=== PATIENT | female | born 1985 | race Caucasian/White ===

== ENCOUNTER → 2019-09-20 13:44 | Outpatient (CLI) | payer MEDICAID | END | disposition home or self-care (01) | LOC: D.HCCECHO 13:44 | PROVIDERS: ATTEND Internal Medicine Cardiovascular Disease | DX: R00.2 Palpitations (principal) ==

== ENCOUNTER 2019-10-27 10:37 | Day surgery (SDC) | payer MEDICAID ==
[~2019-10-27] VITALS: Ht 160 cm; Wt 65.4 kg
--- NOTE | ~2019-10-27 | HEMODYNAMI ---
PATIENT:BOBBY RIBERA MEDICAL RECORD: [id number] : 85 LOCATION:D[facility]REYA ADMISSION DATE: 10/27/19 Generatedon:10/27/201914:44 Patient name: BOBBY RIBERA Patient #: [id number] SSN: [id number] : 1985 Date of study: 10/27/2019 Page: Of Hemodynamic Procedure Report Patient Data Patient Demographics Procedure consent was obtained First Name: BOBBY Gender: Female Last Name: BACILIO : 1985 [facility] Initial: JOHN Age: 34 year(s) Patient #: [id number] Race: SSN: [id number] Additional ID: [id number] Contact details [address]: [address] [place] [address] State: [place] City: [place] Zip code: [address] Past Medical History Allergies Allergen Reaction Date Comments Reported Other allergy 10/27/2019 NKDA Admission Admission Data Admission Date: 10/27/2019 Admission Time: 10:37 Lab Results Lab Result Date: 10/27/2019 Lab Result Time: 0:00 Biochemistry Name Units Result Min Max BUN mg/dl 8 --(*---)-- 7 18 Creatinine mg/dl 0.8 --(-*--)-- 0.6 1.3 eGFR ml/min 87 -*(----)-- 90 120 NONAFRICAN CBC Name Units Result Min Max Hematocrit % 39.4 -*(----)-- 42 54 Hemoglobin g/dl 14 --(*---)-- 13.5 17.5 Procedure Procedure Types Cath Procedure Diagnostic Procedure PPM/ICD PPM Dual Implant Sedation Charges Moderate Sedation up to 30 minutes Procedure Description Procedure Date Procedure Date: 10/27/2019 Procedure Start Time: 14:09 Procedure End Time: 14:42 Procedure Staff Name Function Rolo Hoover MD Performing Physician Monica Mcgraw RT Monitor Jenny Berger RT Scrub Jay Crews MD Assisting physician Joanne Blake RT Manager Housekeeping Rebecca Smith RN Nurse Isis Arenas RN Nurse Procedure Data Cath Procedure Fluoroscopy Diagnostic fluoroscopy Total fluoroscopy Time: 3.2 time: 3.2 min min Diagnostic fluoroscopy Total fluoroscopy dose: dose: 28.52 mGy 28.52 mGy Contrast Material Contrast Material Type Amount (ml) Isovue 300 0 Estimated blood loss: 10 ml Procedure Complications No complications Procedure Medications Medication Administration Route Dosage Ancef (1Gm/50ml NS) I.V.P.B 1 g 0.9% NaCl I.V. 100 ml/hr Ancef Irrigation Topical 1 g (1gm/500ml NS) Lidocaine 1% added to field 20 Versed I.V. 2 mg Fentanyl I.V. 50 mcg Versed I.V. 2 mg Fentanyl I.V. 50 mcg Ativan 2 mg Fentanyl I.V. 50 mcg Fentanyl I.V. 50 mcg Hemodynamics Rest Heart Rate: 103 (bpm) Snapshots Pre Cath Intra NCS Post Cath Vital Signs Time Heart Resp SPO2 etCO2 NIBP (mmHg) Rhythm Pain Sedation Rate (ipm) (%) (mmHg) Status Level (bpm) 13:22:26 92 11 100 0 140/85(117) NSR 0 (11) 10(A) , No pain 13:26:34 84 15 100 0 147/87(119) NSR 0 (11) 10(A) , No pain 13:30:46 98 12 100 0 154/90(113) NSR 0 (11) 10(A) , No pain 13:34:56 96 17 96 0 132/94(108) NSR 0 (11) 10(A) , No pain 13:39:02 99 16 100 0 143/83(107) NSR 0 (11) 10(A) , No pain 13:43:08 96 13 97 0 141/95(107) NSR 0 (11) 10(A) , No pain 13:47:17 90 11 96 0 148/88(109) NSR 0 (11) 10(A) , No pain 13:51:29 79 14 93 0 136/83(107) NSR 0 (11) 10(A) , No pain 13:55:37 81 11 96 0 148/82(107) NSR 0 (11) 10(A) , No pain 13:59:49 86 13 96 0 131/84(104) NSR 0 (11) 10(A) , No pain 14:03:53 96 20 96 0 134/90(109) NSR 0 (11) 10(A) , No pain 14:08:02 86 15 98 2.2 130/77(96) NSR 0 (11) 10(A) , No pain 14:12:08 92 13 97 14.2 135/85(109) NSR 0 (11) 10(A) , No pain 14:16:18 86 12 98 9 130/75(114) NSR 0 (11) 10(A) , No pain 14:21:09 84 13 98 11.2 144/91(107) NSR 0 (11) 10(A) , No pain 14:25:19 84 16 99 18 138/84(102) NSR 0 (11) 10(A) , No pain 14:29:29 98 12 97 10.5 136/82(104) NSR 0 (11) 10(A) , No pain 14:33:37 93 13 96 9.7 136/83(108) NSR 0 (11) 10(A) , No pain 14:37:42 96 11 95 0.7 142/92(118) NSR 0 (11) 10(A) , No pain 14:41:50 98 22 98 0.7 146/119(130) NSR 0 (11) 10(A) , No pain Medications Time Medication Route Dose Verified Delivered Reason Notes Effecti veness by by 13:26:07 Ancef I.V.P.B 1 g Rolo Rebecca Per (1Gm/50ml [facility] protocol NS) MD WEBSTER 13:26:23 0.9% NaCl I.V. 100 Rolo Rebecca used for ml/hr Sneha Luis procedure MD WEBSTER 13:27:09 Ancef Topical 1 g Rolo Rebecca used for Irrigation [facility] procedure (1gm/500ml MD WEBSTER NS) 13:30:32 Lidocaine added 20ml Jay Fernandez for local 1% to vial Gladis Smith anesthetic field RN 14:05:17 Fentanyl I.V. 50 Rolo Haya for mcg [facility] sedation MD WEBSTER 14:05:17 Versed I.V. 2 mg Rolo Marinelli for [facility] sedation MD WEBSTER 14:10:42 Versed I.V. 2 mg Rolo Marinelli for [facility] sedation MD WEBSTER 14:10:49 Fentanyl I.V. 50 Rolo Marinelli for [facility] Bryan webster MD, RN 14:15:38 Ativan IVP 2 mg Rolo Marinelli for [facility] webster MD, RN 14:15:50 Fentanyl I.V. 50 Rolo Marinelli for [facility] Bryan webster MD, RN 14:22:56 Fentanyl I.V. 50 Rolo Marinelli for [facility] Bryan webster MD, RN Procedure Log Time Note 12:20:29 Informed consent obtained and on chart 12:25:58 Procedure Status PPM/ Gen Change/ Lead Revision/ Temp. 12:27:02 Time tracking: Regular hours (M-F 7:00 - 5:00) 12:33:46 Lab Result : Hemoglobin 14 g/dl 12:33:46 Lab Result : Hematocrit 39.4 % 12:33:46 Lab Result : eGFR NONAFRICAN 87 ml/min 12:33:46 Lab Result : BUN 8 mg/dl 12:33:46 Lab Result : Creatinine 0.8 mg/dl 13:01:23 Joanne Blake RT(R) sent for patient. Start room use. 13:01:29 Plan of Care:Hemodynamics will remain stable., Cardiac rhythm will remain stable., Comfort level will be maintained., Respiratory function will remain adequate., Patient/ family verbilizes understanding of procedure., Procedure tolerated without complication., Recovers from procedure without complications.. 13:06:19 Patient allergic to Other allergyNKDA 13:06:32 Lab results completed and on chart. 13:12:05 Patient received from Pre/Post Procedure Room to CCL 3 Alert and oriented. Tansferred to table in Supine position. 13:12:08 Warm blankets applied, and moises hugger turned on for patient comfort. 13:12:09 Correct patient and procedure confirmed by team. 13:12:12 ECG and BP/O2 sat monitors applied to patient. 13:12:38 H&P Date Dictated: 10/27/2019 H&P Addendum completed by physician on day of procedure. (MUST COMPLETE FOR ALL OUTPATIENTS), New H&P dictated by physician.. 13:12:40 Pre-procedure instructions explained to patient. 13:12:41 Pre-op teaching completed and patient verbalized understanding. 13:12:44 Family in patients room. 13:12:46 Patient NPO since Midnight. 13:12:52 Was the patient premedicated? Yes 13:13:12 Is patient on blood thinner?No 13:13:16 Patient diabetic? No. 13:13:25 HCG/Urine : completed and on chart, negative 13:13:28 ----Pre-sedation anethsthesia assessment.---- 13:13:33 Previous problem with sedation/anesthesia? No ? 13:13:36 Snore? Yes 13:13:38 Sleep apnea? No 13:13:40 Deviated septum? Unknown 13:13:43 Opens mouth fully? Yes 13:13:45 Sticks out tongue? Yes 13:13:49 Airway obstruction? No ? 13:13:52 Dentures? No ? 13:21:20 Vital chart was started 13:25:31 IV patent on arrival in left forearm with 0.9% NaCl at [facility]. 13:25:36 Left chest area was prepped with chlora-prep and draped in sterile fashion 13:25:37 Alarms reviewed by R. N. 13:25:38 Sharps counted by scrub and verified by R.N. 13:26:07 Ancef (1Gm/50ml NS) 1 g I.V.P.B was administered by Rebecca Smith RN ; Per protocol; Verbal order read back and verified. 13:26:23 0.9% NaCl 100 ml/hr I.V. was administered by Rebecca Smith RN; used for procedure; Verbal order read back and verified. 13:27:09 Ancef Irrigation (1gm/500ml NS) 1 g Topical was administered by Rebecca Smith RN; used for procedure; Verbal order read back and verified. 13:30:32 Lidocaine 1% 20ml vial added to field was administered by Rebecca Smith RN; for local anesthetic; Verbal order read back and verified. 13:31:54 Medtronic graphic art sales representative MASSIEL LOCO present for procedure. 13:32:06 Use device set GLADIS PPM 13:32:11 2-0 Ticron Multipack ([id number]) opened to sterile field. 13:32:12 3-0 Vicryl Single Pack [id number] opened to sterile field. 13:32:12 5-0 Monocryl PS2 [id number] opened to sterile field. 13:32:13 Cautery Tip Cloth Hauler opened to sterile field. 13:32:14 Cautery Pushbutton Pencil opened to sterile field. 13:32:15 Mepilex Dressing ([id number]) opened to sterile field. 13:33:46 Medtronic 4574-45 PPM Lead opened to sterile field. 13:33:47 Medtronic 4074-52 PPM Lead opened to sterile field. 13:34:[address] Generator [id number] opened to sterile field. 13:36:31 Pre sharps counted by scrub and verified by RN: Sutures: 7; Sponges: 5; Stick needles: 2; Skin needles: 2; Blade: 1; Cautery: 1 13:37:25 Grounding pad site Left thigh. 13:37:27 Grounding pad site free from injury. 13:37:39 Baseline sample Acquired. 13:37:54 Rhythm: 2nd degree heart block 13:37:56 Full Disclosure recording started 13:37:57 - 13:38:49 Physician paged 13:38:50 Physician responded to page. 13:42:49 Immobilizer Sling Medium opened to sterile field. 14:05:17 Versed 2 mg I.V. was administered by Isis Arenas RN; for sedation; Verbal order read back and verified. 14:05:17 Fentanyl 50 mcg I.V. was administered by Isis Arenas RN; for sedation ; Verbal order read back and verified. 14:05:40 Physician arrived 14:05:41 --------ALL STOP TIME OUT------ 14:05:42 Final Timeout: patient, procedure, and site verified with staff and physician. All members of the team are in agreement. 14:05:47 Left chest site verified by team. 14:05:59 Fire Safety Assessment: A--An alcohol-based skin anteseptic being used preoperatively., B--The operative or invasive procedure is being performed above the xiphoid process or in the oropharynx., C--Open oxygen or nitrous oxide is being used., E--There are other possible contributors. 14:06:13 Physical assessment completed. ASA score P 2 - A patient with mild systemic disease as per Rolo Hoover MD. 14:06:21 Sedation plan: IV Moderate Sedation Medication:Versed, Fentanyl 14:09:16 Procedure started. 14:09:48 Lidocaine 1% was administered to left subclavicular area by Jay Crews MD . 14:10:42 Versed 2 mg I.V. was administered by Isis Arenas RN; for sedation; Verbal order read back and verified. 14:10:49 Fentanyl 50 mcg I.V. was administered by Isis Arenas RN; for sedation ; Verbal order read back and verified. 14:12:07 Incision made to left subclavicular area. 14:12:09 Generator pocket made/opened. 14:15:38 Ativan 2 mg IVP was administered by Isis Arenas RN; for sedation; Verbal order read back and verified. 14:15:50 Fentanyl 50 mcg I.V. was administered by Isis Arenas RN; for sedation ; Verbal order read back and verified. 14:17:02 Left subclavian vein accessed with 7Fr Peel Away Sheath. 14:17:12 Left subclavian vein accessed with 7Fr Peel Away Sheath. 14:17:49 Ventricular lead inserted and advanced. 14:17:53 Atrial lead inserted and advanced. 14:20:13 Ventricular lead positioned. 14:22:49 Ventricular lead tested. 14:22:56 Fentanyl 50 mcg I.V. was administered by Isis Arenas RN; for sedation ; Verbal order read back and verified. 14:24:21 Atrial lead positioned. 14:24:34 Atrial lead tested. 14:27:49 PPM Dual was attached to lead(s) and inserted into pocket. 14:29:21 Atrial lead attachment was completed with 2-0 ticron. 14:29:28 Ventricular lead attachment was completed with 2-0 ticron. 14:29:44 Device pocket was irrigated with Ancef. 14:31:23 Subcutaneous closure was completed with 3-0 vicryl plus. 14:31:34 PPM Dual was inserted subcutaneously to left chest. 14:32:02 Generator was sutured in place with 2-0 ticron. 14:33:44 Parameters-- Generator: Mode: DDDR. Lower Rate: 60bpm. Upper Rate: 130bpm. 14:35:26 Skin closure was completed with 5-0 monocryl. 14:36:14 Parameters--Ventricular P/R Wave: 14.4mV. Current: 0.1mA; Threshold: 0.3V; Impedence: 1747OHMS. 14:37:04 Lt Chest incision was dressed with Mepilex dressing. 14:37:15 Procedure ended.(Physican Out) 14:37:54 Parameters--Atrial P/R Wave: 2.9mV. Current: 0.4mA; Threshold: 0.3V; Impedence: 532OHMS. 14:38:38 Post sharps counted by scrub and verified by RN: Sutures: 7; Sponges: 5 ; Stick needles: 2; Skin needles: 2; Blade: 1; Cautery: 1 14:39:44 Fluoroscopy time 03.20 minutes. 14:39:52 Fluoroscopy dose: 28.52 mGy 14:39:52 Flurop Dose total: 28.52 14:40:00 Dose Area Product 395.20 mGy/cm. 14:40:08 Contrast amount:Isovue 300 0ml. 14:40:10 Sharps counted by scrub and verified by R.N. 14:40:24 Post Chest area:stable 14:40:29 Post-procedure physical assessment completed. ASA score P 2 - A patient with mild systemic disease as per Rolo Hoover MD. 14:40:36 Post procedure rhythm: paced 14:40:43 Estimated blood loss: 10 ml 14:40:45 Post procedure instruction explained to patient.Patient verbalizes understanding. 14:40:46 Patient needs reinforcement of post procedure teaching. 14:41:34 Procedure type changed to Cath procedure, Diagnostic procedure, PPM/ICD , PPM Dual Implant, Sedation Charges, Moderate Sedation up to 30 minutes 14:41:37 Procedure and supply charges have been captured, reviewed, submitted an d are correct. 14:42:28 Procedure Complication : No complications 14:42:32 Vital chart was stopped 14:42:43 Operative report dictated upon procedure completion. 14:42:43 See physician's report for complete and final results. 14:42:45 Report given to Pre/Post Procedure Room. 14:42:50 Patient transfered to Pre/Post Procedure Room with Stretcher. 14:42:57 Procedure ended. 14:42:57 Full Disclosure recording stopped 14:43:02 End room use (Document Last) Device Usage Item Name Manufacture Quantity Catalog Hospital Part Current Minima l Lot# / Number Charge Number Stock Stock Serial# Code 2-0 Ticron Ethicon 5 [id number] [id number] 52044 119682 5 Multipack ([id number]) 3-0 Vicryl Ethicon 1 [id number] 684432 157242 5 Single Pack [id number] 5-0 Monocryl Ethicon 1 [id number] 396135 614177 5 PS2 Y495G Cautery Tip Microtek 1 [id number] 490295 827568 098203 5 Cloth [employer] Cautery Microtek 1 [id number] 267666 39897 411408 5 Pushbutton [employer] Inc[employer] Pencil Mepilex Cardinal 1 547246 411580 039162 148845 5 Dressing Health (135854) Medtronic Medtronic 1 4574-45 642511 919919 821449 5 4574-45 PPM [id number] Lead - Medtronic Medtronic 1 4074-52 862351 308526 044235 5 4074-52 PPM [id number] Lead 12-02 Medtronic Medtronic 1 [id number] 758014 [id number] 279344 5 TERI XT [id number] Generator 02-17 W1DR Immobilizer Cardinal 1 [id number] 381992 052757 601681 5 Sling Medium Health Signature Audit [place] Stage Time Signature Unsigned Intra-Procedure 10/27/2019 Monica 2:43:22 PM Mariluz RT(R) (CV) Intra-Procedure 10/27/2019 Isis Arenas 2:44:04 PM RN Intra-Procedure 10/27/2019 Rolo Sigala 2:44:35 PM Bryan [facility] [address] [place] [address]
[2019-10-27] MEDS ORDERED: ZYRTEC10 MG PO (11:04)
[2019-10-27 11:19] VITALS: BP 134/95; Ht 160 cm; Wt 65.4 kg
[2019-10-27 11:32] LABS: HEMATOCRIT 39.4 % (36.0-48.0); MCHC 35.5 g/dL (31.0-37.0); MEAN PLATELET VOLUME 9.8 fL (7.4-10.4); RBC 4.38 10x6/uL (4.00-5.40); RDW 11.9 % (11.5-14.5)
[2019-10-27 11:43] LABS: CALC OSMOLALITY 271 mosm/kg (275-300); CALCIUM 8.8 mg/dL (8.5-10.1); CARBON DIOXIDE 27.4 mmol/L (21.0-32.0); CHLORIDE - SERUM 102 mmol/L (98-107); CREATININE - SERUM 0.8 mg/dL (0.6-1.3); GLUCOSE 96 mg/dL (74-106); POTASSIUM - SERUM 3.7 mmol/L (3.5-5.1); SODIUM 137 mmol/L (136-145); UREA NITROGEN 8 mg/dL (7-18); eGFR NON AFRICAN AMERICAN 87 mL/min (90-120)
[2019-10-27 11:45] LABS: APTT 30.5 SECONDS (22.8-39.4); INR 1.01 (0.85-1.17); PROTIME 13.2 SECONDS (11.6-15.0)
[2019-10-27 11:48] LABS: HCG SERUM NEGATIVE (NEGATIVE)
--- NOTE | 2019-10-27 14:50 | NUR ---
PT REC'D TO ROOM 3 VIA STRETCHER FROM BIOMASS FACILITATOR. MONITOR ESTAB, MOTHER AT BS. SEE LINOTYPE OPERATOR. ALARMS ON AND C/L IN REACH.
--- NOTE | 2019-10-27 15:05 | NUR ---
VSS. L CHEST PPM SITE C/D/I, NO SWELLING/DRAINAGE NOTED. PT DENIES PAIN OR NEEDS. CM - NSR, NO ECTOPY NOTED.
--- NOTE | 2019-10-27 15:35 | NUR ---
VSS, CM - NSR, NO ECTOPY. PIV D/C'D INTACT, DSG APPLIED. PT ASSITED BY NURSE AND MOM TO GET DRESSED, KEEPING L ARM DOWN, THEN INSTRUCTED ON SLING USE. PT TO BR INDEPENDENTLY.
--- NOTE | 2019-10-27 15:39 | NUR ---
ALL D/C INSTRUCTIONS REVIEWED WITH PT AND HER MOM. VERBALIZED UNDERSTANDING, INCLUDING RESTRICTIONS AND F/U APPT.
--- NOTE | 2019-10-27 15:52 | NUR ---
PT DISCHARGED VIA WC TO PRIVATE VEHICLE WITH MOTHER. PT HAS ALL BELONGINGS AND PAPER WORK.
--- NOTE | 2019-10-28 08:00 | OP ---
PATIENT NAME: BOBBY RIBERA MEDICAL RECORD: [id number] :85 LOCATION:D.CAT ADMISSION DATE: SURGEON: DHRUV GRIFFITH MD DATE OF OPERATION: 10/27/2019 PREOPERATIVE DIAGNOSES: Type 2 AV block. POSTOPERATIVE DIAGNOSES: Type 2 AV block. PROCEDURE: 1. Left subclavian vein dual-lead pacemaker placement. 2. Fluoroscopic interpretation. SURGEON: Dhruv Griffith MD CO-SURGEON: Rolo Phelps MD REPORT OF OPERATION: The patient's left chest was prepped and draped in sterile fashion. A 20 mL of 1% lidocaine with epinephrine was infused into the surrounding tissues. The skin incision was made on the left superolateral chest and a subcutaneous pouch was made over the pectoral fascia. [place] were used to cannulate the left subclavian vein and guidewires were advanced times 2. Fluoro was used to note that the wires were in good position in the venous system. Dilator, trocar devices were placed over the wires and the wires and dilators were removed. The leads were advanced through the trocars until they rested in the superior vena cava. Dr. Phelps positioned the leads appropriately in the atrium and ventricle. Once the leads were noted to be in good position, then they were sutured into place with 2-0 Ti-Crons. The leads were affixed to the pacemaker, which was placed into the subcutaneous pouch. We sutured the pacemaker to the pectoral fascia with a single interrupted 2-0 Ti-Cron. The wound bed was irrigated out with antibiotic solution. We reapproximated the subcutaneous tissues with interrupted 3-0 Vicryl and the skin was closed with running subcutaneous 5-0 Monocryl. COMPLICATIONS: None. CONDITION: Stable. ANESTHESIA: Local MAC. BLOOD LOSS: Minimal. NTS:[id number] Voice Confirmation ID: [id number] DOCUMENT ID: [id number] DHRUV GRIFFITH MD at 0800 CC: [id number] DICTATION DATE: 10/27/19 1444 PIE FILLING MIXER: 10/27/19 2300 [facility] 10/27/19 [facility] [address] [place] [id number]
--- NOTE | 2019-10-28 11:30 | OP ---
PATIENT NAME: RADHA FAUST MEDICAL RECORD: [id number] :85 LOCATION:D.CAT ADMISSION DATE: SURGEON: JUDI GOLDSTEIN MD DATE OF OPERATION: 10/27/2019 PROCEDURE: Lead portion of permanent pacemaker placement. INDICATION: Sick sinus syndrome with high degree AV block. SURGEON: Jay Crews MD DESCRIPTION OF PROCEDURE: After left subclavian was cannulated via modified Seldinger technique via Dr. Crews, first under fluoroscopic guidance with the RV lead in the RV apex without any difficulty. After adequate R waves and thresholds were obtained under fluoroscopy again under fluoroscopic guidance, I placed the right atrial lead in the right atrial appendage without difficulty. After adequate P waves and thresholds were obtained, we attached the leads to appropriate poles of the generator and the pocket was closed via Dr. Crews. IMPRESSION: Successful lead portion of permanent pacemaker placement on Radha Faust. COMPLICATIONS: None. ESTIMATED BLOOD LOSS: Minimal. DISPOSITION: To the floor, stable. TRANSINT:[id number] Voice Confirmation ID: [id number] DOCUMENT ID: [id number] JUDI GOLDSTEIN MD at 1130 CC: [id number] DICTATION DATE: 10/27/19 1433 GULLET SLITTER: 10/27/19 2218 [facility] 10/27/[address] [address]
== END 2019-10-27 15:52 | disposition home or self-care (01) ==
LOC: D.CATH 10:37
PROVIDERS: ATTEND Internal Medicine Interventional Cardiology
DX: I44.1 Atrioventricular block, second degree (principal); I49.5 Sick sinus syndrome; Q21.1 Atrial septal defect; I45.10 Unspecified right bundle-branch block; I47.1 Supraventricular tachycardia

== ENCOUNTER → 2020-05-23 14:28 | Outpatient (CLI) | payer MEDICAID ==
[2019-10-27 11:19] VITALS: BMI 25.5
[~2020-05-23 14:28] MED LIST: ZYRTEC10 MG PO
== END | disposition home or self-care (01) ==
LOC: D.HCCECHO 14:28
PROVIDERS: ATTEND Internal Medicine Cardiovascular Disease
DX: I47.1 Supraventricular tachycardia (principal)